=== PATIENT | female | born 1955 | race Caucasian/White ===

== ENCOUNTER 2021-03-28 15:41 | Outpatient (CLI) | payer OTHER | END 2021-03-28 20:51 | disposition home or self-care (01) | LOC: MUS 15:41 | PROVIDERS: ATTEND Internal Medicine Cardiovascular Disease | DX: L03.116 Cellulitis of left lower limb (principal); R60.0 Localized edema | CPT/HCPCS: 93925; Q0092 ==

== ENCOUNTER 2021-08-16 10:29 | Day surgery (SDC) | payer OTHER ==
[2021-08-10 11:36] LABS: BASOPHILS % (AUTO) 0.8 % (0.0-2.0); EOSINOPHILS # (AUTO) 0.1 K/uL (0-0.4); EOSINOPHILS % (AUTO) 1.2 % (0.0-4.0); HEMATOCRIT 37.4 % (36-48); HEMOGLOBIN 12.5 g/dL (12.0-16.0); LYMPHOCYTES # (AUTO) 1.4 K/uL (2.5-16.5); LYMPHOCYTES % (AUTO) 31.6 % (20.5-51.1); MEAN CORPUSCULAR HEMOGLOBIN 30 pg (27-31); MEAN CORPUSCULAR HGB CONC 34 g/dL (33-37); MEAN CORPUSCULAR VOLUME 89.8 fL (80-94); MONOCYTES # (AUTO) 0.3 K/uL (0.8-1.0); MONOCYTES % (AUTO) 7.5 % (1.7-9.3); NEUTROPHILS # (AUTO) 2.5 K/uL (1.8-7.7); NEUTROPHILS % (AUTO) 58.9 % (42.2-75.2); PLATELET COUNT (AUTO) 271 K/uL (140-450); RED BLOOD CELL COUNT(AUTO) 4.16 MIL/uL (4.20-5.40); RED CELL DISTRIBUTION WIDTH 13.4 % (11.6-13.7); WHITE BLOOD COUNT (AUTO) 4.3 K/uL (4.8-10.8)
[2021-08-10 12:02] LABS: ANION GAP 11.6 (8-16); CARBON DIOXIDE 27.6 mmol/L (21-32); CREATININE 0.9 mg/dL (0.6-1.3); POTASSIUM 4.2 mmol/L (3.5-5.1)
[~2021-08-16] VITALS: Ht 157.5 cm; Wt 89.8 kg
[2021-08-16] MEDS ORDERED: GELATIN SPONGE 100 1 SPG TP ONE (11:38)
[2021-08-16] MEDS ORDERED: BUPIVACAINE-MPF 0.25% 30 ML VIAL INJ ONE (11:40)
[2021-08-16] MEDS ORDERED: LIDOCAINE 1% 500 MG/50 ML VIAL ONE (11:41)
[2021-08-16] MEDS ORDERED: BUPIVACAINE-MPF/EPI 0.25% 30 ML VIAL INJ ONE (11:42)
[2021-08-16] MEDS ORDERED: fentaNYL citrate 0.05 MG/ML VIAL ONE (12:59)
[2021-08-16] MEDS ORDERED: MIDAZOLAM 2 MG/2 ML VIAL ONE (12:59)
[2021-08-16] MEDS ORDERED: SEVOFLURANE 250 ML BTL INH ONE (13:10)
[2021-08-16] MEDS ORDERED: LIDOCAINE 2% 100 MG/5 ML SYR IVP ONE ×3 (13:33)
[2021-08-16] MEDS ORDERED: SUCCINYLCHOLINE CHLORIDE 200 MG/10 ML VIAL IVP ONE (13:36)
[2021-08-16] MEDS ORDERED: PROPOFOL 200 MG/20 ML VIAL IV ONE (13:36)
[2021-08-16] MEDS ORDERED: METOCLOPRAMIDE 10 MG/2 ML INJ VIAL ONE (13:36)
[2021-08-16] MEDS ORDERED: DEXAMETHASONE 4 MG/ML VIAL ONE ×2 (13:36)
[2021-08-16] MEDS ORDERED: ONDANSETRON 4 MG/2 ML VIAL ONE (13:45)
[2021-08-16] MEDS ORDERED: SUGAMMADEX SODIUM 200 MG/2 ML VIAL IV ONE (13:45)
[2021-08-16] MEDS ORDERED: ROCURONIUM 50 MG/5 ML VIAL IV ONE (13:47)
[2021-08-16] MEDS ORDERED: LACTATED RINGERS 1,000 ML IV SCH (14:10)
[2021-08-16] MEDS ORDERED: MEPERIDINE 25 MG/ML SYR IVP PRN (14:10)
[2021-08-16] MEDS ORDERED: HYDROmorphone 1 MG/ML AMP IVP PRN (14:10)
[2021-08-16] MEDS ORDERED: ONDANSETRON 4 MG/2 ML VIAL IVP PRN (14:10)
== END 2021-08-16 15:55 | disposition home or self-care (01) ==
LOC: MOR 10:29 → MMU 10:48 → MOR 15:55
PROVIDERS: ATTEND Surgery
DX: K64.8 Other hemorrhoids (principal); F41.9 Anxiety disorder, unspecified; E78.5 Hyperlipidemia, unspecified; Z79.899 Other long term (current) drug therapy; Z20.822 Contact with and (suspected) exposure to COVID-19
CPT/HCPCS: 36415; 46260; 71045; 80048; 85025; 87426; 88304; J0330; J1100; J2001; J2250; J2405; J2704; J2765; J3010; J3490; J7030

== ENCOUNTER 2022-02-10 13:50 | Emergency (ER) | payer OTHER ==
[~2022-02-10] VITALS: Ht 154.9 cm; Wt 84.4 kg
[2022-02-10 14:00] VITALS: BP 110/58
--- NOTE | 2022-02-10 14:35 | NUR ---
67/F PRESENTS TO ED WITH C/O RIGHT HAND PAIN S/P TRIPPING AND FALLING X30 MIN AGO, DENIES HEAD OR NECK INJURY, DENIES LOC. ABRASIONS NOTED TO RIGHT HAND.
[2022-02-10] MEDS ORDERED: BACITRACIN OINT 500 UNITS/GM PKT TP ONE (14:40)
--- NOTE | 2022-02-10 15:03 | NUR ---
PT R POSTERIOR 3/4 KNUCKLE ABRASIONS IRRIGATED DRESSED AND BANDAGED. + CMS
[2022-02-10] MEDS ORDERED: BACI1PAC6 TP (15:28)
--- NOTE | 2022-02-10 15:48 | NUR ---
Patient discharged with v/s stable. Written and verbal after care instructions ABOUT ABRASION given and explained. Patient alert, oriented and verbalized understanding of instructions. Ambulatory with steady gait. All questions addressed prior to discharge. ID band removed. Patient advised to follow up with PMD. Rx of BACITRACIN given. Patient educated on indication of medication including possible reaction and side effects. Opportunity to ask questions provided and answered.
== END 2022-02-10 15:48 | disposition home or self-care (01) ==
LOC: MED 13:50
DX: S60.221A Contusion of right hand, initial encounter (principal); E78.00 Pure hypercholesterolemia, unspecified; Z98.890 Other specified postprocedural states; W18.30XA Fall on same level, unspecified, initial encounter; Y93.89 Activity, other specified; Y92.89 Other specified places as the place of occurrence of the external cause; Y99.8 Other external cause status
CPT/HCPCS: 73130; 90471; 90715; 99283

== ENCOUNTER 2022-02-19 06:38 | Emergency (ER) | payer OTHER ==
[~2022-02-19] VITALS: Ht 157.5 cm; Wt 83.9 kg
[~2022-02-19 06:38] MED LIST: BACI1PAC6 TP
[2022-02-19 07:00] VITALS: BP 135/68
--- NOTE | 2022-02-19 07:07 | NUR ---
Patient ambulated to bed 7.
--- NOTE | 2022-02-19 07:25 | NUR ---
X-Ray at bedside.
--- NOTE | 2022-02-19 07:40 | NUR ---
NO NURSING INTERVENTION NEEDED. SEEN & TREATED BY DR MILLER.
--- NOTE | 2022-02-19 07:47 | NUR ---
PER ROMARIO CANNON, FABRICATED SHOE APPLIED TO L FOOT. + CMS AFTER APPLICATION
[2022-02-19 07:50] VITALS: BP 135/68
[2022-02-19] MEDS ORDERED: NAPR-54 PO (07:50)
--- NOTE | 2022-02-19 07:50 | NUR ---
Patient discharged BY DR MILLER with v/s stable. Written and verbal after care instructions given and explained. Patient alert, oriented and verbalized understanding of instructions. Ambulatory with steady gait. All questions addressed prior to discharge. ID band removed. Patient advised to follow up with PMD. Rx of NAPROSYN given. Patient educated on indication of medication including possible reaction and side effects. Opportunity to ask questions provided and answered.
== END 2022-02-19 07:50 | disposition home or self-care (01) ==
LOC: MED 06:38
DX: S92.332A Displaced fracture of third metatarsal bone, left foot, initial encounter for closed fracture (principal); W18.30XA Fall on same level, unspecified, initial encounter; Y93.89 Activity, other specified; Y92.89 Other specified places as the place of occurrence of the external cause; Y99.8 Other external cause status
CPT/HCPCS: 73660; 99283

== ENCOUNTER 2022-04-05 09:45 | Day surgery (SDC) | payer OTHER ==
[~2022-04-05] VITALS: Ht 157.5 cm; Wt 86.2 kg
[~2022-04-05 09:45] MED LIST changes: +NAPR-54 PO
[2022-04-05] MEDS ORDERED: fentaNYL citrate 0.05 MG/ML VIAL ONE (11:03)
[2022-04-05] MEDS ORDERED: MIDAZOLAM 5 MG/5 ML VIAL ONE (11:03)
[2022-04-05] MEDS ORDERED: diphenhydrAMINE 50 MG/ML VIAL ONE (11:03)
[2022-04-05] MEDS ORDERED: fentaNYL citrate 0.05 MG/ML VIAL IVP ONE (11:40)
[2022-04-05] MEDS ORDERED: MIDAZOLAM 5 MG/5 ML VIAL IV ONE (11:40)
== END 2022-04-05 12:30 | disposition home or self-care (01) ==
LOC: MDS 09:45 → MMU 09:45 → MDS 12:30
PROVIDERS: ATTEND Internal Medicine Gastroenterology
DX: R93.3 Abnormal findings on diagnostic imaging of other parts of digestive tract (principal); Q40.1 Congenital hiatus hernia; E78.00 Pure hypercholesterolemia, unspecified; Z79.899 Other long term (current) drug therapy; Z20.822 Contact with and (suspected) exposure to COVID-19
CPT/HCPCS: 43235; 87426; J2250; J3010; J1200

== ENCOUNTER 2022-11-09 11:54 | Emergency (ER) | payer OTHER ==
[~2022-11-09] VITALS: Ht 157.5 cm; Wt 86.2 kg
[~2022-11-09 11:54] MED LIST changes: +BACI-416 TP; -BACI1PAC6 TP
[2022-11-09 12:32] VITALS: BP 129/63
--- NOTE | 2022-11-09 12:45 | NUR ---
67/F WALKED IN C/O LEFT BIG TOE PAIN AFTER DROPPING A CERAMIC PLATE ON THE LEFT FOOT. NO DEFORMITY NOTED. PT PRESENTS WITH WRAPPING AROUND THE TOE. PT REPORTS TAKING IBUPROFEN LAST NIGHT WITH MILD RELIEF. PMH: DENIES
[2022-11-09 15:30] VITALS: BP 134/74
--- NOTE | 2022-11-09 15:30 | NUR ---
Patient discharged with v/s stable. Written and verbal after care instructions given and explained. Patient verbalized understanding. Ambulatory with steady gait. All questions addressed prior to discharge. Advised to follow up with PMD.
== END 2022-11-09 15:30 | disposition home or self-care (01) ==
LOC: MED 11:54
DX: S90.112A Contusion of left great toe without damage to nail, initial encounter (principal); Z79.1 Long term (current) use of non-steroidal anti-inflammatories (NSAID); Z79.2 Long term (current) use of antibiotics; W20.8XXA Other cause of strike by thrown, projected or falling object, initial encounter; Y93.89 Activity, other specified; Y92.89 Other specified places as the place of occurrence of the external cause; Y99.8 Other external cause status
CPT/HCPCS: 73660; 99283

== ENCOUNTER 2023-02-09 08:45 | Emergency (ER) | payer OTHER ==
[~2023-02-09] VITALS: Ht 157.5 cm; Wt 87.1 kg
[~2023-02-09 08:45] MED LIST changes: -BACI-416 TP; +BACI-418 TP
[2023-02-09 09:01] VITALS: BP 131/72; PULSE 70; RESP 20; TEMP 96.7; O2SAT 97
[2023-02-09] MEDS ORDERED: IBUP-1842 PO (10:10)
[2023-02-09] MEDS ORDERED: IBUPROFEN 400 MG TAB PO ONE (10:10)
[2023-02-09] MEDS ORDERED: LORA10TA19 PO (10:10)
--- NOTE | 2023-02-09 10:15 | NUR ---
Patient discharged with v/s stable. Written and verbal after care instructions given and explained. Patient alert, oriented and verbalized understanding of instructions. Ambulatory with steady gait. All questions addressed prior to discharge. ID band removed. Patient advised to follow up with PMD. Rx of CLARITIN, MOTRIN given. Patient educated on indication of medication including possible reaction and side effects. Opportunity to ask questions provided and answered.
== END 2023-02-09 10:00 | disposition home or self-care (01) ==
LOC: MED 08:45
DX: S90.122A Contusion of left lesser toe(s) without damage to nail, initial encounter (principal); J30.9 Allergic rhinitis, unspecified; Z79.899 Other long term (current) drug therapy; W22.03XA Walked into furniture, initial encounter; Y93.89 Activity, other specified; Y92.89 Other specified places as the place of occurrence of the external cause; Y99.8 Other external cause status
CPT/HCPCS: 73630; 99283

== ENCOUNTER 2023-02-25 11:58 | Emergency (ER) | payer OTHER ==
[~2023-02-25] VITALS: Ht 157.5 cm; Wt 87.1 kg
[~2023-02-25 11:58] MED LIST changes: +IBUP-1842 PO; +LORA10TA19 PO
[2023-02-25 12:08] VITALS: BP 136/71; PULSE 74; RESP 20; TEMP 96.5; O2SAT 98
[2023-02-25] MEDS ORDERED: FAMOTIDINE 20 MG TAB PO ONE (14:15)
[2023-02-25] MEDS ORDERED: DIPH25TA53 PO (15:05)
--- NOTE | 2023-02-25 15:09 | NUR ---
Patient discharged with v/s stable. Written and verbal after care instructions given and explained. Patient alert, oriented and verbalized understanding of instructions. Ambulatory with steady gait. All questions addressed prior to discharge. ID band removed. Patient advised to follow up with PMD. Rx of BENADRYL given. Patient educated on indication of medication including possible reaction and side effects. Opportunity to ask questions provided and answered.
[2023-02-25 15:10] VITALS: BP 130/66; PULSE 70; RESP 20; TEMP 96.5; O2SAT 98
== END 2023-02-25 15:09 | disposition home or self-care (01) ==
LOC: MED 11:58
DX: T78.40XA Allergy, unspecified, initial encounter (principal); R21 Rash and other nonspecific skin eruption; Z79.899 Other long term (current) drug therapy; X58.XXXA Exposure to other specified factors, initial encounter
CPT/HCPCS: 99283

== ENCOUNTER 2023-05-22 21:47 | Emergency (ER) | payer OTHER ==
[~2023-05-22] VITALS: Ht 157.5 cm; Wt 86.2 kg
[~2023-05-22 21:47] MED LIST changes: +DIPH25TA53 PO
[2023-05-22 22:15] VITALS: BP 129/69; PULSE 60; RESP 17; TEMP 97.9; O2SAT 97
[2023-05-23] MEDS ORDERED: MORPHINE SULFATE 4 MG/ML SYR IVP ONE (01:10)
[2023-05-23] MEDS ORDERED: PROPOFOL 200 MG/20 ML VIAL IV ONE (01:10)
[2023-05-23] MEDS ORDERED: NACL 0.9% 1,000 ML IV ONE (01:10)
[2023-05-23 01:43] LABS: BASOPHILS % (AUTO) 0.5 % (0.0-2.0); EOSINOPHILS % (AUTO) 0.4 % (0.0-4.0); HEMATOCRIT 38.2 % (36-48); HEMOGLOBIN 12.8 g/dL (12.0-16.0); LYMPHOCYTES # (AUTO) 0.8 K/uL (2.5-16.5); LYMPHOCYTES % (AUTO) 11.6 % (20.5-51.1); MEAN CORPUSCULAR HEMOGLOBIN 30 pg (27-31); MEAN CORPUSCULAR HGB CONC 34 g/dL (33-37); MEAN CORPUSCULAR VOLUME 90.4 fL (80-94); MONOCYTES # (AUTO) 0.4 K/uL (0.8-1.0); MONOCYTES % (AUTO) 5.5 % (1.7-9.3); NEUTROPHILS # (AUTO) 5.9 K/uL (1.8-7.7); PLATELET COUNT (AUTO) 256 K/uL (140-450); RED BLOOD CELL COUNT(AUTO) 4.22 MIL/uL (4.20-5.40); RED CELL DISTRIBUTION WIDTH 13.9 % (11.6-13.7); WHITE BLOOD COUNT (AUTO) 7.3 K/uL (4.8-10.8)
[2023-05-23 01:53] LABS: ANION GAP 10.4 (8-16); CALCIUM 8.6 mg/dL (8.5-10.1); CARBON DIOXIDE 28.8 mmol/L (21-32); POTASSIUM 4.2 mmol/L (3.5-5.1)
[2023-05-23] MEDS ORDERED: ACET-8905 PO (02:57)
[2023-05-23] MEDS ORDERED: IBUP-2213 PO (02:57)
[2023-05-23 05:10] VITALS: BP 133/54; PULSE 53; RESP 16; TEMP 97.9; O2SAT 100
== END 2023-05-23 05:10 | disposition home or self-care (01) ==
LOC: MED 21:47
DX: S52.502A Unspecified fracture of the lower end of left radius, initial encounter for closed fracture (principal); S52.612A Displaced fracture of left ulna styloid process, initial encounter for closed fracture; S00.81XA Abrasion of other part of head, initial encounter; R55 Syncope and collapse; R42 Dizziness and giddiness; E11.9 Type 2 diabetes mellitus without complications; I10 Essential (primary) hypertension; Z79.899 Other long term (current) drug therapy; Z79.1 Long term (current) use of non-steroidal anti-inflammatories (NSAID); Z79.2 Long term (current) use of antibiotics; W18.39XA Other fall on same level, initial encounter; Y92.89 Other specified places as the place of occurrence of the external cause; Y93.89 Activity, other specified; Y99.8 Other external cause status
CPT/HCPCS: 25605; 36415; 73110; 80048; 84484; 85025; 93005; 96361; 96374; 99152; 99285; J2270; J7030; J2704